=== PATIENT | male | born 1980 | race African-American/Black ===

== ENCOUNTER 2021-01-12 18:22 | Emergency (ER) | payer MEDICAID ==
[~2021-01-12] VITALS: Ht 198.1 cm; Wt 127.0 kg
[2021-01-12] MEDS ORDERED: AZITHROMYCIN 500 MG TABLET PO ONE (19:45)
[2021-01-12] MEDS ORDERED: CEFTRIAXONE SODIUM 500 MG/VIAL IM ONE (19:45)
[2021-01-12] MEDS ORDERED: ACYC200O2 PO (19:59)
[2021-01-12 20:30] VITALS: BP 130/66
== END 2021-01-12 20:32 | disposition home or self-care (01) ==
LOC: ER 18:22
DX: Z20.2 Contact with and (suspected) exposure to infections with a predominantly sexual mode of transmission (principal); R03.0 Elevated blood-pressure reading, without diagnosis of hypertension; F15.90 Other stimulant use, unspecified, uncomplicated
CPT/HCPCS: 87491; 96372; 99283; J0696